=== PATIENT | female | born 1945 ===

== ENCOUNTER 2017-06-02 19:00 | Emergency (ER) | payer MEDICARE, BC ==
[2017-06-02 19:43] VITALS: BP 176/84; PULSE 71; RESP 16; TEMP 98; O2SAT 100
--- NOTE | 2017-06-02 20:26 | ED PDOC ---
HPI: Hypertension/Hypotension Time Seen by Provider: 06/02/17 19:55 Chief Complaint (Nursing): High Blood Pressure Chief Complaint (Provider): High Blood Pressure History Per: Patient History/Exam Limitations: no limitations Onset/Duration Of Symptoms: Days (x1) Current Symptoms Are (Timing): Still Present Additional Complaint(s): Fabiola Araujo is a 72 year old female with previous medical history of hypertension and anxiety, who p[resents to the emergency department for an evaluation of high blood pressure associated with anxiety ongoing for 1 day. Denied fever, chills, chest pain, headache, dizziness or shortness of breath. PMD: Past Medical History Reviewed: Historical Data, Nursing Documentation, Vital Signs Vital Signs: Last Vital Signs Temp 98.0 F 06/02/17 19:39 Pulse 71 06/02/17 19:39 Resp 16 06/02/17 19:39 BP 176/84 H 06/02/17 19:39 Pulse Ox 100 06/02/17 19:39 - Medical History PMH: Anxiety, HTN, Hyperthyroidism Denies: Diabetes, Hepatitis, HIV, Seizures, Sexually Transmitted Disease - Family History Family History: States: Unknown Family Hx - Immunization History Hx Tetanus Toxoid Vaccination: No Hx Influenza Vaccination: No Hx Pneumococcal Vaccination: No - Home Medications Home Medications: Ambulatory Orders Medication Instructions Recorded Ativan 1 mg PO TID 12/08/13 Levothyroxine 0.05 mg PO DAILY 12/08/13 Metoprolol 25 mg PO DAILY 12/08/13 Meclizine HCl [Antivert/25] 1 tab PO TID PRN #25 tab 09/08/14 - Allergies Allergies/Adverse Reactions: Allergies Allergy/AdvReac Type Severity Reaction Status Date / Time Penicillins Allergy RASH Verified 06/02/17 19:39 Review of Systems ROS Statement: Except As Marked, All Systems Reviewed And Found Negative Constitutional: Negative for: Fever, Chills Cardiovascular: Negative for: Chest Pain Respiratory: Negative for: Shortness of Breath Neurological: Negative for: Headache, Dizziness Psych: Positive for: Anxiety Physical Exam - Reviewed Nursing Documentation Reviewed: Yes Vital Signs Reviewed: Yes - Physical Exam Appears: Positive for: Well, Non-toxic, No Acute Distress Head Exam: Positive for: ATRAUMATIC, NORMAL INSPECTION, NORMOCEPHALIC Skin: Positive for: Normal Color Eye Exam: Positive for: Normal appearance, EOMI, PERRL. Negative for: Nystagmus ENT: Positive for: Normal ENT Inspection Neck: Positive for: Normal, Painless ROM, Supple. Negative for: Decreased ROM Cardiovascular/Chest: Positive for: Regular Rate, Rhythm. Negative for: Chest Non Tender, Murmur Respiratory: Positive for: Normal Breath Sounds, Accessory Muscle Use. Negative for: Decreased Breath Sounds, Crackles, Rales, Rhonchi, Wheezing, Respiratory Distress Gastrointestinal/Abdominal: Positive for: Normal Exam, Bowel Sounds, Soft. Negative for: Tenderness Extremity: Positive for: Normal ROM. Negative for: Tenderness, Pedal Edema, Calf Tenderness, Deformity Neurologic/Psych: Positive for: Alert (x3), Oriented - ECG O2 Sat by Pulse Oximetry: 100 (RA) Pulse Ox Interpretation: Normal Medical Decision Making Medical Decision Making: Initial Impression: Anxiety Initial Plan: Scribe Attestation: Documented by Teagan Torres, acting as a scribe for Umesh Melvin MD. Provider Scribe Attestation: All medical record entries made by the Scribe were at my direction and personally dictated by me. I have reviewed the chart and agree that the record accurately reflects my personal performance of the history, physical exam, medical decision making, and the department course for this patient. I have also personally directed, reviewed, and agree with the discharge instructions and disposition. Disposition - Clinical Impression Clinical Impression: Anxiety, Hypertension - Patient ED Disposition Is Patient to be Admitted: No - Disposition Referrals: Hema Conner MD [Staff Provider] - Rubén Villa MD [Staff Provider] - Disposition: Routine/Home Disposition Time: 20:40 Condition: FAIR Instructions: Hypertension (ED), Anxiety (ED) Forms: [employer] (Dutch)
== END 2017-06-02 20:59 | disposition home or self-care (01) ==
LOC: H.ER 19:00
DX: I10 Essential (primary) hypertension (principal); F41.9 Anxiety disorder, unspecified; E05.90 Thyrotoxicosis, unspecified without thyrotoxic crisis or storm; Z88.0 Allergy status to penicillin